=== PATIENT | male | born 1965 | race Caucasian/White ===

== ENCOUNTER 2017-07-23 17:53 | Inpatient (IN) | payer OTHER ==
[~2017-07-23] VITALS: Ht 188 cm; Wt 140.6 kg
[~2017-07-23 17:53] MED LIST: METF-305 PO
[2017-07-23 18:51] VITALS: BP_SYST 142
[2017-07-23] MEDS ORDERED: METO25TA6 PO (18:59)
[2017-07-23] MEDS ORDERED: LISI2.5T48 PO (18:59)
[2017-07-23] MEDS ORDERED: HYDR12.55 PO (18:59)
[2017-07-23] MEDS ORDERED: INSULIN ASPART 100 UNITS/ML, 10 ML VIAL (NovoLOG) SUBCUT PRN (21:15)
[2017-07-23] MEDS ORDERED: COMMUNICATION ORDER XX ONE (21:15)
[2017-07-23] MEDS ORDERED: ACETAMINOPHEN 325 MG TABLET PO PRN (21:15)
[2017-07-23 21:58] LABS: BASOPHILS % (AUTO) 0.4 % (0.0-2.0); EOSINOPHILS # (AUTO) 0.2 K/uL (0.0-0.4); EOSINOPHILS % (AUTO) 2.1 % (0.0-4.0); HEMATOCRIT 38.3 % (36-54); LYMPHOCYTES # (AUTO) 1.9 K/uL (1.0-5.5); LYMPHOCYTES % (AUTO) 21.6 % (20.5-51.5); MEAN CORPUSCULAR HEMOGLOBIN 30 pg (27-31); MEAN CORPUSCULAR HGB CONC 33 % (32-36); MEAN CORPUSCULAR VOLUME 91 fL (79.0-98.0); MONOCYTES # (AUTO) 1.1 K/uL (0.0-1.0); MONOCYTES % (AUTO) 12.4 % (1.7-9.3); NEUTROPHILS # (AUTO) 5.7 K/uL (1.8-7.7); NEUTROPHILS % (AUTO) 63.5 % (40.0-70.0); PLATELET COUNT (AUTO) 192 K/uL (130-430); RED BLOOD CELL COUNT(AUTO) 4.23 MIL/uL (4.2-6.2); RED CELL DISTRIBUTION WIDTH 13.2 % (9.0-15.0); WHITE BLOOD COUNT (AUTO) 8.9 K/uL (4.8-10.8)
[2017-07-23] MEDS ORDERED: VANCOMYCIN HCL 1 GM/NS PREMIX 250 ML IV ONE (22:00)
[2017-07-23 22:07] LABS: CALCIUM 9.5 mg/dL (8.4-11.0); CREATININE 1.37 mg/dL (0.55-1.30); HEMOGLOBIN 12.7 g/dL (14.0-18.0); POTASSIUM 3.6 mmol/L (3.5-5.1)
[2017-07-23 22:14] LABS: TOTAL BILIRUBIN 0.5 mg/dL (0.0-1.0)
[2017-07-23] MEDS ORDERED: PIPERACILLIN/TAZOBACTAM 3.375 GM/VIAL (ZOSYN) IV ONE ×2 (22:38→22:39)
[2017-07-23] MEDS ORDERED: VANCOMYCIN HCL 1000 MG/VIAL IV ONE (22:42)
[2017-07-23] MEDS ORDERED: VANCOMYCIN HCL 500 MG/VIAL IV ONE (22:43)
[2017-07-23] MEDS: ZOSYN (PIPERACILLIN/TAZO) 3.375 GM in DEX-ISO (50ml) IV SCH (22:52)
[2017-07-23 23:55] VITALS: BP_SYST 128
[2017-07-24] MEDS ORDERED: VANCOMYCIN HCL 1,500 MG in NS 250 ML IV SCH ×2
[2017-07-24] MEDS ORDERED: VANCOMYCIN HCL 1 GM/NS PREMIX 250 ML IV ONE
[2017-07-24 03:53] VITALS: BP_SYST 113
[2017-07-24] MEDS: ZOSYN (PIPERACILLIN/TAZO) 3.375 GM in DEX-ISO (50ml) IV SCH ×4 (04:18→22:42)
[2017-07-24] MEDS ORDERED: GABA-531 PO (07:45)
[2017-07-24] MEDS ORDERED: GLIP10TA11 PO (07:45)
[2017-07-24 08:00] VITALS: BP_SYST 130
[2017-07-24] MEDS: GABAPENTIN 300 MG CAPSULE PO SCH ×2 (08:12→21:55)
[2017-07-24] MEDS ORDERED: *LOVENOX 1MG/KG Q24H/PHARMACY XX ONE (08:15)
[2017-07-24] MEDS: metFORMIN HCL 500 MG TABLET PO SCH ×3 (08:49→21:57)
[2017-07-24] MEDS: METOPROLOL TARTRATE 25 MG TABLET PO SCH (08:55)
[2017-07-24] MEDS ORDERED: NON-FORMULARY MEDICATION (Metformin Hcl 1,000 MG) PO SCH (09:00)
[2017-07-24] MEDS: LISINOPRIL 5 MG TABLET PO SCH (09:00)
[2017-07-24] MEDS ORDERED: NON-FORMULARY MEDICATION (Hydrochlorothiazide 25 MG) PO SCH (09:00)
[2017-07-24] MEDS: HYDROCHLOROTHIAZIDE 25 MG TABLET (HCTZ) PO SCH (09:01)
[2017-07-24] MEDS: VANCOMYCIN HCL 1,500 MG in NS 250 ML IV SCH ×2 (09:20→15:28)
[2017-07-24] MEDS: ENOXAPARIN SODIUM 40 MG/0.4 ML SYRINGE SUBCUT SCH (09:29)
[2017-07-24] MEDS: HYDROcodone/ACETAMIN 5-325 MG TAB (NORCO/ VICODIN) PO PRN ×3 (10:32→23:04)
[2017-07-24 11:27] VITALS: BP_SYST 105
[2017-07-24 15:09] VITALS: BP_SYST 123
[2017-07-24 20:05] VITALS: BP_SYST 110
[2017-07-24 23:44] VITALS: BP_SYST 115
[2017-07-25] MEDS: VANCOMYCIN HCL 1,500 MG in NS 250 ML IV SCH ×3 (00:22→15:37)
[2017-07-25] MEDS: FLUTICASONE PROPIONATE 50 mCg/SPRAY 16 GM NS SCH ×2 (01:30→09:00)
[2017-07-25 03:41] VITALS: BP_SYST 144
[2017-07-25] MEDS: ZOSYN (PIPERACILLIN/TAZO) 3.375 GM in DEX-ISO (50ml) IV SCH ×4 (04:17→21:23)
[2017-07-25 06:26] LABS: BASOPHILS % (AUTO) 0.6 % (0.0-2.0); EOSINOPHILS # (AUTO) 0.3 K/uL (0.0-0.4); EOSINOPHILS % (AUTO) 3.7 % (0.0-4.0); HEMATOCRIT 39.4 % (36-54); HEMOGLOBIN 12.8 g/dL (14.0-18.0); LYMPHOCYTES # (AUTO) 1.3 K/uL (1.0-5.5); LYMPHOCYTES % (AUTO) 17.1 % (20.5-51.5); MEAN CORPUSCULAR HEMOGLOBIN 30 pg (27-31); MEAN CORPUSCULAR HGB CONC 33 % (32-36); MEAN CORPUSCULAR VOLUME 92 fL (79.0-98.0); MONOCYTES # (AUTO) 0.7 K/uL (0.0-1.0); MONOCYTES % (AUTO) 9.5 % (1.7-9.3); NEUTROPHILS # (AUTO) 5.5 K/uL (1.8-7.7); NEUTROPHILS % (AUTO) 69.1 % (40.0-70.0); PLATELET COUNT (AUTO) 199 K/uL (130-430); RED CELL DISTRIBUTION WIDTH 12.8 % (9.0-15.0); WHITE BLOOD COUNT (AUTO) 7.8 K/uL (4.8-10.8)
[2017-07-25 07:02] LABS: CALCIUM 8.9 mg/dL (8.4-11.0); CREATININE 1.32 mg/dL (0.55-1.30); POTASSIUM 3.4 mmol/L (3.5-5.1); TOTAL BILIRUBIN 0.8 mg/dL (0.0-1.0)
[2017-07-25 08:00] VITALS: BP_SYST 127
[2017-07-25] MEDS: LISINOPRIL 5 MG TABLET PO SCH (08:18)
[2017-07-25] MEDS: HYDROCHLOROTHIAZIDE 25 MG TABLET (HCTZ) PO SCH (08:19)
[2017-07-25] MEDS: metFORMIN HCL 500 MG TABLET PO SCH ×3 (08:19→21:21)
[2017-07-25] MEDS: METOPROLOL TARTRATE 25 MG TABLET PO SCH (08:20)
[2017-07-25] MEDS: GABAPENTIN 300 MG CAPSULE PO SCH ×2 (08:44→21:22)
[2017-07-25] MEDS: ENOXAPARIN SODIUM 40 MG/0.4 ML SYRINGE SUBCUT SCH (08:44)
[2017-07-25] MEDS ORDERED: POTASSIUM CHLORIDE 20 MEQ TAB.PRT.SR PO ONE (09:30)
[2017-07-25 11:16] LABS: INR 1.1 (0.80-1.20); PROTHROMBIN TIME 10.7 SECS (9.5-12.5)
[2017-07-25 11:22] VITALS: BP_SYST 125
[2017-07-25] MEDS: HYDROcodone/ACETAMIN 5-325 MG TAB (NORCO/ VICODIN) PO PRN ×2 (14:30→21:25)
[2017-07-25 16:46] VITALS: BP_SYST 112
[2017-07-25 20:05] VITALS: BP_SYST 125
[2017-07-25 23:49] VITALS: BP_SYST 145
[2017-07-26] MEDS: VANCOMYCIN HCL 1,500 MG in NS 250 ML IV SCH ×3 (00:51→16:33)
[2017-07-26 03:57] VITALS: BP_SYST 129
[2017-07-26] MEDS: ZOSYN (PIPERACILLIN/TAZO) 3.375 GM in DEX-ISO (50ml) IV SCH ×3 (05:41→15:51)
[2017-07-26 06:14] LABS: BASOPHILS % (AUTO) 0.7 % (0.0-2.0); EOSINOPHILS # (AUTO) 0.3 K/uL (0.0-0.4); EOSINOPHILS % (AUTO) 4.4 % (0.0-4.0); HEMOGLOBIN 13.2 g/dL (14.0-18.0); LYMPHOCYTES # (AUTO) 1.2 K/uL (1.0-5.5); LYMPHOCYTES % (AUTO) 17.5 % (20.5-51.5); MEAN CORPUSCULAR HEMOGLOBIN 29 pg (27-31); MEAN CORPUSCULAR HGB CONC 32 % (32-36); MEAN CORPUSCULAR VOLUME 90 fL (79.0-98.0); MONOCYTES # (AUTO) 0.6 K/uL (0.0-1.0); MONOCYTES % (AUTO) 8.3 % (1.7-9.3); NEUTROPHILS # (AUTO) 4.6 K/uL (1.8-7.7); NEUTROPHILS % (AUTO) 69.1 % (40.0-70.0); PLATELET COUNT (AUTO) 235 K/uL (130-430); RED BLOOD CELL COUNT(AUTO) 4.65 MIL/uL (4.2-6.2); WHITE BLOOD COUNT (AUTO) 6.7 K/uL (4.8-10.8)
[2017-07-26 08:00] VITALS: BP_SYST 124
[2017-07-26] MEDS: FLUTICASONE PROPIONATE 50 mCg/SPRAY 16 GM NS SCH ×2 (09:00→12:59)
[2017-07-26] MEDS: GABAPENTIN 300 MG CAPSULE PO SCH (09:07)
[2017-07-26] MEDS: HYDROCHLOROTHIAZIDE 25 MG TABLET (HCTZ) PO SCH (09:07)
[2017-07-26] MEDS: metFORMIN HCL 500 MG TABLET PO SCH ×2 (09:08→15:59)
[2017-07-26] MEDS: LISINOPRIL 5 MG TABLET PO SCH (09:09)
[2017-07-26] MEDS: ENOXAPARIN SODIUM 40 MG/0.4 ML SYRINGE SUBCUT SCH (09:09)
[2017-07-26] MEDS: METOPROLOL TARTRATE 25 MG TABLET PO SCH (09:10)
[2017-07-26 11:34] VITALS: BP_SYST 146
[2017-07-26 15:39] VITALS: BP_SYST 115
[2017-07-26 16:20] VITALS: BP_SYST 115
[2017-07-26] MEDS ORDERED: CEFEPIME 1 GM in D5W 50 ML IV SCH (18:45)
== END 2017-07-26 20:40 | disposition home health service (06) | DRG 872 ==
LOC: SMU 18:38
PROVIDERS: ADMIT Internal Medicine Infectious Disease; ATTEND Internal Medicine Infectious Disease
PROC: 02HV33Z Insertion of Infusion Device into Superior Vena Cava, Percutaneous Approach (ICD-10-PCS; principal; 2017-07-26)
DX: A41.9 Sepsis, unspecified organism (principal); E11.621 Type 2 diabetes mellitus with foot ulcer; I11.0 Hypertensive heart disease with heart failure; I50.9 Heart failure, unspecified; M86.9 Osteomyelitis, unspecified; E11.69 Type 2 diabetes mellitus with other specified complication; Z90.49 Acquired absence of other specified parts of digestive tract; G89.29 Other chronic pain; L97.529 Non-pressure chronic ulcer of other part of left foot with unspecified severity; Z53.20 Procedure and treatment not carried out because of patient's decision for unspecified reasons; Z85.038 Personal history of other malignant neoplasm of large intestine; M54.5 Low back pain
CPT/HCPCS: 36415; 71010; 80053; 80202-TC; 82962; 83690-TC; 85025; 85610-TC; 85730-TC; 87040-TC; 87070-TC; 87075-TC; 87186-TC; 93923; C1751; C1769; J0692; J1650; J1815; J2543; J3370; J7050; J7060

== ENCOUNTER 2020-09-18 02:16 | Emergency (ER) | payer OTHER, SELFPAY ==
[~2020-09-18] VITALS: Ht 188 cm; Wt 97.5 kg
[~2020-09-18 02:16] MED LIST changes: +GABA800T PO; +LEVO500T89 PO; +LIP10 PO; +LISI-209 PO; -METF-305 PO; +METF1000 PO; +METO50TA16 PO; +TAMS-11 PO
[2020-09-18 02:41] VITALS: BP_SYST 144
--- NOTE | 2020-09-18 03:15 | NUR ---
Placed in room 7. Placed on surveillance system monitor, blood pressure machine and pulse oximeter. To gown for exam. Side rails up.
--- NOTE | 2020-09-18 03:17 | NUR ---
Patient complains of having low oxygen saturation at home. Pt recently dx with Covid on 09/12/20 and was instructed to get his own pulse oximeter by PCP. Pt noticed O2 saturation dropped down to 88% RA at home. Pt denies CP, SOB, but states he feels body aches. No other injuries/complaints per patient or noted.
--- NOTE | 2020-09-18 03:18 | NUR ---
ER Dr. Monahan at bedside examining patient.
--- NOTE | 2020-09-18 03:29 | NUR ---
EKG completed and given to Dr. Monahan for interpretation.
[2020-09-18 03:42] LABS: MEAN CORPUSCULAR HEMOGLOBIN 28 pg (27-31); MEAN CORPUSCULAR HGB CONC 33 % (32-36); MEAN CORPUSCULAR VOLUME 85 fL (79.0-98.0); PLATELET COUNT (AUTO) 101 K/uL (130-430); RED BLOOD CELL COUNT(AUTO) 5.08 MIL/uL (4.2-6.2); RED CELL DISTRIBUTION WIDTH 13.6 % (9.0-15.0); WHITE BLOOD COUNT (AUTO) 2.4 K/uL (4.8-10.8)
--- NOTE | 2020-09-18 03:45 | NUR ---
RT at bedside obtaining ABG.
[2020-09-18 03:56] LABS: CALCIUM 8.6 mg/dL (8.4-11.0); CREATININE 0.84 mg/dL (0.55-1.30); POTASSIUM 4.7 mmol/L (3.5-5.1)
[2020-09-18 04:00] LABS: BAND % (MANUAL) 2 % (0-6); C-REACTIVE PROTEIN QUANT 7.8 mg/dL (0-0.5); LYMPHOCYTES % (MANUAL) 18 % (20-46)
[2020-09-18 04:01] LABS: ATYPICAL LYMPHOCYTES % 1 % (0-0); BASOPHILS % (MANUAL) 0 % (0-2); EOSINOPHILS % (MANUAL) 0 % (0-7); MONOCYTES % (MANUAL) 20 % (0-11); PROTHROMBIN TIME 9.9 SECS (9.5-12.5)
[2020-09-18 04:02] LABS: ALBUMIN 3.6 g/dL (3.4-4.8); TOTAL BILIRUBIN 0.5 mg/dL (0.0-1.0)
[2020-09-18 04:51] VITALS: BP_SYST 144
--- NOTE | 2020-09-18 04:51 | NUR ---
Patient given written and verbal discharge instructions and verbalizes understanding. ER MD discussed with patient the results and treatment provided. Patient in stable condition. ID arm band removed. No Rx given. Patient educated on pain management and to follow up with PMD. Pain Scale 0. Opportunity for questions provided and answered. Medication side effect fact sheet provided.
== END 2020-09-18 04:51 | disposition home or self-care (01) ==
LOC: SED 02:16
DX: U07.1 COVID-19 (principal); I10 Essential (primary) hypertension; E11.9 Type 2 diabetes mellitus without complications; Z79.899 Other long term (current) drug therapy; Z79.84 Long term (current) use of oral hypoglycemic drugs
CPT/HCPCS: 36415; 36600; 71045; 80053; 82728; 82803-TC; 83605; 83615-TC; 83880; 84484; 85007; 85027; 85379; 85384-TC; 85610-TC; 85730-TC; 86140; 87040-TC; 93005; 99285